=== PATIENT | female | born 1985 | race Caucasian/White ===

== ENCOUNTER 2019-11-19 12:36 | Outpatient (CLI) | payer OTHER, SELFPAY ==
--- NOTE | ~2019-11-19 | CT_ITS ---
EXAMINATION: CT abdomen pelvis wo con DATE: 11/19/2019 13:13 INDICATION: Right lower quadrant abdominal pain, nausea and diarrhea. TECHNIQUE: Computed tomography (CT) of the abdomen and pelvis was performed without intravenous contr ast. Automated exposure control and iterative reconstruction technique were employed. The dose-length product was 531.94 mGy-cm. COMPARISON: None FINDINGS: Lung bases are clear. Heart size is normal. No pericardial or pleural effusion. Liver, gallbladder, s pleen, pancreas, bilateral adrenal glands and kidneys are normal. 6.8 cm left ovarian cyst. Right ova ry, anteverted uterus and bladder are unremarkable. Bowels are normal. The appendix is not visualized . No pericecal inflammatory change to suggest acute appendicitis. No free intraperitoneal gas or flui d. No pathologically enlarged abdominal or pelvic lymphadenopathy. Mild lumbar levocurvature with mil d spondylosis. IMPRESSION: 1. 6.8 cm left ovarian cyst. No other acute intra-abdominal/pelvic process. Reviewed, dictated and finalized at location A.
== END 2019-11-19 12:37 | disposition home or self-care (01) ==
LOC: ANHIMG 12:42
PROVIDERS: PCP Family Medicine; Visit Provider Family Medicine
DX: R10.31 Right lower quadrant pain (principal); N83.202 Unspecified ovarian cyst, left side
CPT/HCPCS: 74176

== ENCOUNTER 2019-11-20 09:00 | Outpatient (CLI) | payer OTHER, SELFPAY ==
--- NOTE | ~2019-11-20 | US_ITS ---
EXAMINATION: US pelvic complete w TV DATE: 11/20/2019 09:37 INDICATION: Right ovarian cyst. TECHNIQUE: Multiple transabdominal and endovaginal sonographic images of the pelvis were obtained. COMPARISON: None. FINDINGS: The uterus measures 11.7 x 5.4 x 7.5 cm. The endometrial complex measures 12 mm in thickness. The ri ght ovary is not visualized The left ovary measures 7.2 x 6.0 x 6.2 cm. 7.0 x 5.3 x 6.2 cm anechoic c yst in the left ovary. There is an internal septation within the cyst which on a couple images appear s to measure up to 2 mm in thickness although no vascular flow seen along the septation on color Dopp ler. No evident nodular soft tissue component. Vascular flow with normal arterial and venous waveform s is seen in the left ovary on color Doppler. There is no free fluid in the pelvis. IMPRESSION: 1. 7.2 cm left ovarian cyst with internal septation which appears to measure up to 2 mm in thickness. Differential includes simple septated cyst and ovarian neoplasm more likely benign than malignant. T he septation is suboptimally visualized and could consider contrast-enhanced MRI for further evaluati on as clinically indicated. Reviewed, dictated and finalized at location A. IMPRESSION: 1. 7.2 cm left ovarian cyst with internal septation which appears to measure up to 2 mm in thickness. Differential includes simple septated cyst and ovarian n eoplasm more likely benign than malignant. The septation is suboptimally visual ized and could consider contrast-enhanced MRI for further evaluation as clinica lly indicated.
== END 2019-11-20 09:01 | disposition home or self-care (01) ==
LOC: ANHIMG 09:02
PROVIDERS: PCP Family Medicine; Visit Provider Nurse Practitioner
DX: N83.201 Unspecified ovarian cyst, right side (principal)
CPT/HCPCS: 76830; 76856

== ENCOUNTER 2019-11-27 00:30 | Outpatient (CLI) | payer OTHER, SELFPAY ==
[2019-11-27 17:52] LABS: SARS-CoV-2 RNA PCR Negative
== END 2019-11-27 00:31 | disposition home or self-care (01) ==
LOC: ANHCOVIDDT 00:30
PROVIDERS: PCP Family Medicine; Visit Provider Obstetrics & Gynecology Gynecology
DX: Z01.818 Encounter for other preprocedural examination (principal); Z11.59 Encounter for screening for other viral diseases
CPT/HCPCS: 87635; C9803; U0003

== ENCOUNTER 2019-11-30 02:16 | Day surgery (SDC) | payer OTHER, SELFPAY ==
[2019-11-26 09:15] VITALS: BMI 28.8
[2019-11-30] VITALS (10 sets, daily range): BP systolic 103–120; BP diastolic 54–67; PULSE 51–75; RESP 10–20; TEMP 36.1–36.2; O2SAT 99–100
--- NOTE | 2019-11-30 07:24 | PM.HPGS ---
History of Present Illness History of Present Illness Consent: Risks, benefits, and alternatives have been discussed and questions answered. Patient agrees to proceed with procedure. Chief complaint: Left Ovarian Cyst Narrative: Vivian De La Cruz is a 33 year old female with RLQ pain that is now mild. Pelvic CT and u/s show a 7 cm cyst with one septation. CA125 is normal. Options discussed with the patient including observation and repeat u/s. Reviewed that the cyst may resolve and may not be the cause of pain especially being on the opposite side. Patient wants laparoscopy. Reviewed possible BSO as the u/s shows the ovary taken over by the cyst. Possible cystectomy or cystotomy also discussed. Risks of infection, bleeding, perforation or injury to internal organs discussed. Patient agrees to proceed. [facility] Past Medical History Medical History (Updated 11/30/19 @ 07:35 by Norah Levi MD) GERD (gastroesophageal reflux disease) (normal spontaneous vaginal delivery) x 2 Seizure disorder as child Family History Family History (Updated 09/30/17 @ 13:36 by DOCTOR UNKNOWN) Other Diabetes mellitus Family history of congenital heart disease Family history of malignant neoplasm Social History Social History (Updated 11/19/19 @ 11:37 by Snow Worrell) Smoking status: Never smoker Second hand tobacco smoke exposure: No Alcohol intake: current Substance use: never Substance use type: does not use Additional occupation/education comments: stay at home mom Gender identity (if verbalized by the patient): Female Meds Home Medications and Allergies Home Medications Medication Instructions Recorded Confirmed Type sertraline 25 mg tablet 25 mg PO DAILY 11/19/19 11/26/19 History Juice Plus 8 cap PO DAILY 11/26/19 History cetirizine 10 mg PO DAILY 11/26/19 11/26/19 History cholecalciferol (vitamin D3) 125 mcg PO DAILY 11/26/19 11/26/19 History [Vitamin D3] ferrous sulfate 27 mg PO DAILY 11/26/19 11/26/19 History omega 3-dgm-pwb-fish oil [Fish Oil] 1 cap PO DAILY 11/26/19 11/26/19 History vitamin B complex 1 tablet PO DAILY 11/26/19 11/26/19 History azithromycin 250 mg tablet See Rx Instructions PO .COMPLEX #6 11/28/19 Rx tablet cetirizine 5 mg-pseudoephedrine ER 1 tablet PO Q12H PRN #30 tablet 11/28/19 Rx 120 mg tablet,extended release,12hr Allergies Allergy/AdvReac Type Severity Reaction Status Date / Time bee venom protein (honey bee) Allergy Intermediate Anaphylactic Verified 11/26/19 09:16 Shock Exam Const: General: no acute distress GI: GI Palp: Yes Soft to palpation and Yes Tenderness to palpation present (GI) (mild tenderness lower pelvis) : External Female Exam: normal external appearance Speculum Exam - Vagina: normal appearance of the vagina Speculum Exam - Cervix: normal appearance of the cervix Bimanual exam- vagina & uterus: enlarged Bimanual Exam- Adnexa, other: tender (mild, pelvic fullness) Assessment and Plan Assessment and plan (1) Ovarian cyst: Code(s): N83.209 - Unspecified ovarian cyst, unspecified side Status: Acute Assessment and Plan: u/s showed on Left but patient with right pelvic pain so could be arising from right ovary as the right ovary is not visualized plan laparoscopic management of ovarian cyst
--- NOTE | 2019-11-30 08:48 | WPDANESEPPF ---
Anes - Initial Pre Proc Eval Procedure: Operation Date: 11/30/19 10:15 Proposed Procedures p Diagnostic Laparoscopy, Possible Left Salpingo-Oophorectomy - Norah Levi MD Date/Time: 11/30/19 08:48 Surgeon: Norah Levi MD Pre Op Diagnosis: Left Ovarian Cyst Patient Data Age: 33 Gender: F Height: 1.73 m Weight: 86.18 kg Allergies Allergy/AdvReac Type Severity Reaction Status Date / Time bee venom protein (honey bee) Allergy Intermediate Anaphylactic Verified 11/30/19 08:49 Shock Home Medications Medication Instructions Recorded Confirmed Type sertraline 25 mg tablet 25 mg PO DAILY 11/19/19 11/26/19 History Juice Plus 8 cap PO DAILY 11/26/19 History cetirizine 10 mg PO DAILY 11/26/19 11/26/19 History cholecalciferol (vitamin D3) 125 mcg PO DAILY 11/26/19 11/26/19 History [Vitamin D3] ferrous sulfate 27 mg PO DAILY 11/26/19 11/26/19 History omega 9-gqq-raw-fish oil [Fish Oil] 1 cap PO DAILY 11/26/19 11/26/19 History vitamin B complex 1 tablet PO DAILY 11/26/19 11/26/19 History azithromycin 250 mg tablet See Rx Instructions PO .COMPLEX #6 11/28/19 Rx tablet cetirizine 5 mg-pseudoephedrine ER 1 tablet PO Q12H PRN #30 tablet 11/28/19 Rx 120 mg tablet,extended release,12hr Patient hx anesthesia problems: none Family hx anesthesia problems: none PMFSH Past Medical History Medical History (Updated 11/30/19 @ 08:51 by Nahun Aceves MD) Anxiety Chronic fatigue GERD (gastroesophageal reflux disease) Major depressive disorder, recurrent episode, mild with peripartum onset (normal spontaneous vaginal delivery) x 2 Ovarian cyst Seizure disorder as child Family History Family History (Updated 09/30/17 @ 13:36 by DOCTOR UNKNOWN) Other Diabetes mellitus Family history of congenital heart disease Family history of malignant neoplasm Social History Social History (Updated 11/19/19 @ 11:37 by Snow Worrell) Smoking status: Never smoker Second hand tobacco smoke exposure: No Alcohol intake: current Substance use: never Substance use type: does not use Additional occupation/education comments: stay at home mom Gender identity (if verbalized by the patient): Female Anes - Eval Final PreProcedure Day of Procedure 11/30/19 08:48 Patient weight: overweight Heart: regular rate and rhythm Lungs: clear to auscultation and normal air movement Airway: Mallampati scale class II Neurological: alert and oriented Last oral intake: >/= 8 hours ASA classification: II Emergent: no Anesthetic plan: proceed Anesthesia type and monitoring: general ETT Informed Consent: The patient's anesthetic plan and its attendant risks and benefits were discussed with the patient/family/POA. Questions were solicited and answers provided to the satisfaction of the patient/family/POA.
[2019-11-30 08:50] LABS: Hematocrit 36.5 % (37.0-47.0); Hemoglobin 11.9 g/dL (12.0-15.0)
[2019-11-30] MEDS: LACTATED RINGERS 1,000 ML 30 ML IV CONT ×2 (09:09→11:19)
--- NOTE | 2019-11-30 09:34 | SUR.PREOP ---
family update provided
--- NOTE | 2019-11-30 10:24 | PM.OP ---
Procedure Note - Brief Procedure Note - Brief Date of procedure: 11/30/19 Pre-op diagnosis: Left Ovarian Cyst RLQ pain Post-op diagnosis: other (bilateral ovarian cysts; extensive endometriosis and scaring) Procedure performed: diagnostic laparoscopy; adhesiolysis Anesthesia: GETA Surgeon: Norah Levi MD Estimated blood loss (mL): 5 Drains: No Packing: No Pathology: none sent Complications: No immediate complications Condition: stable Disposition: PACU Findings: bilateral ovaries densely adherent to culdesac and one another; tubes adherent to ovaries; descending colon tethered with thin bands of scar tissue
--- NOTE | 2019-11-30 11:58 | OP_ITS ---
DATE OF PROCEDURE: 11/30/2019 PREOPERATIVE DIAGNOSES: 1. Left ovarian cyst. 2. Right lower quadrant pelvic pain. POSTOPERATIVE DIAGNOSES: 1. Bilateral ovarian cysts. 2. Endometriosis adhesions. ANESTHESIA: General with ET tube. PROCEDURE: Laparoscopy with adhesiolysis. ESTIMATED BLOOD LOSS: 5 cc. PATHOLOGY: None. DESCRIPTION OF PROCEDURE: The patient was taken to the operating room, placed under anesthesia in the dorsal lithotomy position. She was prepped and draped in usual sterile fashion. Bivalved speculum was placed in the vagina. Cervix was grasped on the anterior lip of a tenaculum and the uterus sounded to 8 cm. The 8 cm Alona was placed. All other vaginal instruments were removed. The parking assistant had a previously drained the bladder. Attention was turned to the abdomen. A vertical skin incision was made in the base of the umbilicus. The abdomen was tented. The Veress needle was placed. Opening patient pressure was 7 mmHg. Pneumoperitoneum was obtained to a patient pressure of 15 mmHg. The patient was placed in Trendelenburg. A 5 mm skin incision was made 2 cm above the symphysis pubis in the midline. The 5 mm trocar was placed. The blunt probe was used to evaluate the pelvis. Initial findings reveal the ovaries are both densely adherent to the underlying cul-de-sac. The descending colon was tethered to the left pelvic sidewall with thin bands of the scar tissue. Using the blunt probe, these adhesions were taken down. The bowel was then able to be removed out of the field. The blunt probe was used to continue to try to evaluate the ovaries and tubes. During this process, the Alona manipulator came out. An Marion manipulator was replaced with a tenaculum. Attention was returned to the abdomen. A 2nd 5 mm trocar was placed in the left lower quadrant under direct visualization. Using a grasper holding the bowel out of the way and the parking assistant holding the uterus out of the way, the cul-de-sac was further investigated. There were densely adherent scars, minimal portions of the ovary are visualized. They do not move out of the cul-de-sac due to dense adhesions. I was able to separate the tubes, ovaries and after further exploration, decision was made to stop the procedure and had a long-term discussion with the patient about planning with severe endometriosis and scar tissue. All instruments were removed. Pneumoperitoneum was reduced. Skin incisions were closed using 4-0 nylon. The patient was awakened from anesthesia and taken to Recovery in stable condition. Marjorie I MT: Anjel
--- NOTE | 2019-11-30 13:59 | SUR.PHASEII ---
PT CALLED, CRYING, C/O'ING SEVERE PAIN TO BACK OF NECK, UNDER RIGHT RIBS, BETWEEN SHOULDERS; C/O'ING HAVING DIFFICULTY CATCHING HER BREATH . PT INSTRUCTED TO INHALE THROUGH HER NOSE SLOWLY AND EXHALE THROUGH HER MOUTH. DR. ZUNIGA NOTIFIED; HE SUGGESTED THAT SHE MAY HAVE GAS TRAPPED BUT STATED THAT IF SHE FELT SHORT OF BREATH TO GO THE ER. PT CALLED BACK; PT NO LONGER CRYING; SAYS SHE IS BREATHING SUGGESTED. I SUGGESTED THAT SHE COULD APPLY EITHER ICE OR HEAT TO HER NECK FOR COMFORT AND TO WALK AROUND TOLERATED AND TO SIT OR RECLINE RATHER THAN LAY DOWN FLAT; I TOLD HER THAT ANY GAS WILL DISSIPATE GRADUALLY BUT THAT IF SHE HAS SHORTNESS OF BREATH TO GO TO THE ER. PT CALLED BACK TO ASK ABOUT TAKING IBUPROFEN. I TOLD HER SHE COULD TAKE IT. OXYCODONE GIVEN IN OP AREA.
== END 2019-11-30 13:05 | disposition home or self-care (01) ==
PROVIDERS: Anesthesiology; PCP Family Medicine; Visit Provider Obstetrics & Gynecology Gynecology
PROC: (CPT 49320; principal; 2019-11-30 10:15)
DX: N83.202 Unspecified ovarian cyst, left side (principal); N83.201 Unspecified ovarian cyst, right side; N73.6 Female pelvic peritoneal adhesions (postinfective); N80.9 Endometriosis, unspecified; L90.5 Scar conditions and fibrosis of skin; K21.9 Gastro-esophageal reflux disease without esophagitis; F41.9 Anxiety disorder, unspecified; F32.9 Major depressive disorder, single episode, unspecified; E66.3 Overweight; Z68.28 Body mass index [BMI] 28.0-28.9, adult
CPT/HCPCS: 49329; 36415; 85014; 85018; A9270; J0330; J1100; J1885; J2250; J2405; J2704; J3010; J7030; J7120; Q9968

== ENCOUNTER 2020-09-14 09:38 | Emergency (ER) | payer OTHER, SELFPAY ==
--- NOTE | ~2020-09-14 | US_ITS ---
EXAMINATION: US venous doppler [facility] EXAM DATE: 09/14/2020 11:40 INDICATION: Bilateral lower extremity pain. TECHNIQUE: Multiple grayscale, color flow and Doppler images of the lower extremity deep venous syste ms bilaterally were obtained and reviewed. There is no prior study for comparison. FINDINGS: Right side: The right common femoral, femoral and profunda veins demonstrate normal color flow, respi ratory variation, augmentation and compressibility. Compressibility, color flow confirmed within the right popliteal, posterior tibial, peroneal, and greater saphenous veins. Left side: The left common femoral, femoral and profunda veins demonstrate normal color flow, respira tory variation, augmentation and compressibility. Compressibility, color flow confirmed within the l eft popliteal, posterior tibial, peroneal, and greater saphenous veins. IMPRESSION: 1. No lower extremity deep venous thrombosis bilaterally. Reviewed, dictated and finalized at location A.
[2020-09-14 09:47] VITALS: BP 125/69; PULSE 82; RESP 20; TEMP 35.8; O2SAT 100
[2020-09-14 12:18] VITALS: BP 147/91; PULSE 78; RESP 18; TEMP 36.8; O2SAT 100
--- NOTE | 2020-09-14 12:45 | ED.GENADULT ---
HPI - General Adult General Chief complaint: Unspecified Stated complaint: pain tayo LE Time Seen by Provider: 09/14/20 12:16 History of Present Illness HPI narrative: Bilateral foot and calf pain for the past few months. Feels achey in the calfs and sharp in the feet. Worse first thing in the morning. Improves somewhat as the day goes on. Increasing in severity. Additionally she reports that she is now having memory problems. She says that she frequently goes places and can't remeber why she is there and forgetting what things are called. She is concerned that she may have DVTs that are causing her to have a stroke. No CP, SOB, leg swelling, rash, fever. Related Data Home Medications Medication Instructions Recorded Confirmed Juice Plus 8 cap PO DAILY 11/26/19 03/13/20 cetirizine 10 mg PO DAILY 11/26/19 03/13/20 cholecalciferol (vitamin D3) 125 mcg PO DAILY 11/26/19 03/13/20 [Vitamin D3] ferrous sulfate 27 mg PO DAILY 11/26/19 03/13/20 omega 3-zbc-fkr-fish oil [Fish Oil] 1 cap PO DAILY 11/26/19 03/13/20 vitamin B complex 1 tablet PO DAILY 11/26/19 03/13/20 drospirenone (contraceptive) 4 mg 4 mg PO DAILY 03/03/20 03/13/20 (28) tablet Allergies Allergy/AdvReac Type Severity Reaction Status Date / Time bee venom protein (honey bee) Allergy Intermediate Anaphylactic Verified 03/31/20 11:36 Shock Review of Systems Review of Systems: All systems reviewed & are unremarkable except as noted in HPI and below Constitutional: Constitutional: Reports fatigue, Denies fever(s) and Denies weakness Eyes: Eyes: Reports no additional eye complaints ENT: Reports system reviewed and no additional complaints, except as documented Cardiovascular: Cardiovascular: Denies chest pain Respiratory: Respiratory: Denies dyspnea Gastrointestinal: Gastrointestinal: Reports no additional gastrointestinal complaints Genitourinary: Genitourinary: Reports no additional female genitourinary complaints Musculoskeletal: Musculoskeletal: Denies back pain, Denies muscle weakness and Denies neck pain Neurologic: Denies Abnormal speech present, Denies abnormal gait, Denies headache(s) and Denies weakness Psychiatric: Psychiatric: Reports anxiety and Reports depression [facility] Past Medical History Medical History Anxiety Chronic fatigue Endometriosis determined by laparoscopy GERD (gastroesophageal reflux disease) Major depressive disorder, recurrent episode, mild with peripartum onset (normal spontaneous vaginal delivery) x 2 Ovarian cyst Seizure disorder as child Surgical History Surgical History H/O exploratory laparotomy Family History Family History Other Diabetes mellitus Family history of congenital heart disease Family history of malignant neoplasm Social History Social History Social History: Smoking status: Never smoker Second hand tobacco smoke exposure: No Alcohol intake: former Substance use: never Substance use type: does not use Additional occupation/education comments: stay at home mom Gender identity (if verbalized by the patient): Female Exam Const: General: healthy appearing, no acute distress and alert Orientation/consciousness: patient oriented x3 HENMT: Head: normal to inspection Neck: Neck: normal visual inspection Resp: Effort & Inspection: normal respiratory effort Auscultation: clear to auscultation bilaterally, no rales, no rhonchi and no wheezes Cardio: Jugular venous distension: no JVD Rate: regular rate Rhythm: regular rhythm Heart sounds: no murmurs Skin: General skin exam: normal color Rashes: no rashes Neuro: General: patient oriented x3, gait normal, tone normal, moves all extremities and CN's II-XI intact bilater
[2020-09-14 13:02] VITALS: BP 122/78; PULSE 76; RESP 16; O2SAT 99
== END 2020-09-14 13:05 | disposition home or self-care (01) ==
PROVIDERS: Emergency Provider Emergency Medicine; PCP Family Medicine
DX: M72.2 Plantar fascial fibromatosis (principal); M79.662 Pain in left lower leg; M79.661 Pain in right lower leg; K21.9 Gastro-esophageal reflux disease without esophagitis
CPT/HCPCS: 93970; 99284

== ENCOUNTER → 2020-11-04 08:29 | Outpatient (CLI) | payer OTHER, SELFPAY ==
--- NOTE | ~2020-11-04 | US_ITS ---
EXAMINATION: US abdomen limited DATE: 11/04/2020 09:10 INDICATION: Abnormal liver function tests TECHNIQUE: Multiple grayscale and Doppler ultrasound images of the abdomen were obtained. COMPARISON: 12/27/2014 FINDINGS: The head and body of the pancreas are normal. The pancreatic tail is obscured by bowel gas. The liver is normal with normal echogenicity and echotexture. No surface nodularity. Normal hepatope debora flow in the main portal vein. The gallbladder is normal with no abnormal wall thickening, pericho lecystic fluid or stones. The normal common bile duct measures 3 mm. There was no sonographic De Jesus sign. IMPRESSION: 1. Normal sonographic study of the gallbladder. Reviewed, dictated and finalized at location D.
== END ==
PROVIDERS: PCP Family Medicine; Visit Provider Family Medicine
DX: R94.5 Abnormal results of liver function studies (principal)
CPT/HCPCS: 76705

== ENCOUNTER → 2020-11-22 18:16 | Outpatient (CLI) | payer OTHER, SELFPAY ==
--- NOTE | ~2020-11-22 | XR_ITS ---
XR abdomen obstructive series DATE: 11/22/2020 18:35 INDICATION: Abdominal pain TECHNIQUE: Supine and upright AP views COMPARISON: None FINDINGS: There is a moderately prominent amount of fecal material in the colon but no evidence of sadi wel obstruction or intraperitoneal free air. The psoas shadows are intact. No visceromegaly or signif icant abnormal calcification is detected. The lung bases are clear. No pleural effusion. Heart size appears normal. IMPRESSION: No significant abnormality Reviewed, dictated and finalized at Location A. Reviewed, dictated and finalized at location A. IMPRESSION: No significant abnormality
== END ==
PROVIDERS: PCP Family Medicine; Visit Provider Family Medicine
DX: R10.9 Unspecified abdominal pain (principal)
CPT/HCPCS: 74019

== ENCOUNTER 2024-03-07 07:35 | Outpatient (CLI) | payer BC, SELFPAY ==
--- NOTE | ~2024-03-07 | US_ITS ---
US abdomen limited INDICATION: Fatty liver. Inflammation. PROCEDURE: Realtime right upper abdominal ultrasound. COMPARISON: No prior studies for comparison. FINDINGS: The pancreas is normal without focal mass or pancreatic ductal dilation. Liver echotexture is increased, consistent with fatty infiltration. There is normal directional flow in the portal ve in. The gallbladder is normal without stones, gallbladder wall thickening or pericholecystic fluid. Comm on bile duct measures 3 mm. No sonographic De Jesus's sign. IMPRESSION: 1: Normal limited abdominal ultrasound. Reviewed, dictated and finalized at location B.
== END 2024-03-07 07:36 | disposition home or self-care (01) ==
PROVIDERS: PCP Chiropractor; Visit Provider Chiropractor
DX: K76.0 Fatty (change of) liver, not elsewhere classified (principal)
CPT/HCPCS: 76705